=== PATIENT | male | born 1945 | race Caucasian/White ===

== ENCOUNTER 2021-03-31 12:00 | Emergency (ER) | payer OTHER ==
[2021-03-31] MEDS ORDERED: GASTROGRAFIN 30 ML BOT ONE (14:13)
== END 2021-03-31 14:49 | disposition home or self-care (01) ==
LOC: ERS 12:00
DX: K94.23 Gastrostomy malfunction (principal); I10 Essential (primary) hypertension; E78.00 Pure hypercholesterolemia, unspecified; M10.9 Gout, unspecified
CPT/HCPCS: 43762; 74018; Q9963

== ENCOUNTER 2022-02-12 10:13 | Emergency (ER) | payer OTHER | END 2022-02-12 13:45 | disposition home or self-care (01) | LOC: ERS 10:13 | DX: K94.23 Gastrostomy malfunction (principal) | CPT/HCPCS: 43762; 74018; 82271 ==

== ENCOUNTER 2022-09-14 13:51 | Emergency (ER) | payer OTHER | END 2022-09-14 19:19 | disposition home or self-care (01) | LOC: ERS 13:51 | DX: K94.23 Gastrostomy malfunction (principal); I10 Essential (primary) hypertension; E78.00 Pure hypercholesterolemia, unspecified | CPT/HCPCS: 43762 ==